=== PATIENT | female | born 1935 | race African-American/Black ===

== ENCOUNTER 2016-12-15 07:30 | Day surgery (SDC) | payer OTHER, BC ==
[2016-12-14 15:00] VITALS: BMI 33.2
[2016-12-15] MEDS ORDERED: ROPIVACAINE HCL 0.5% 30ML VIAL ONE (08:42)
[2016-12-15] MEDS ORDERED: MIDAZOLAM HCL 2 MG/2 ML SINGLE DOSE VIAL ONE ×2 (08:43)
[2016-12-15] MEDS ORDERED: ROCURONIUM BROMIDE 50 MG/5 ML VIAL ONE (09:54)
--- NOTE | 2016-12-15 09:58 | HP ---
[facility]ellite [facility] - Chief Complaint Chief Complaint: right shoulder pain - Past Medical History Allergies/Adverse Reactions: Allergies Allergy/AdvReac Type Severity Reaction Status Date / Time acetaminophen [From Percocet] Allergy "DIZZY,CRAZ Verified 12/14/16 15:02 Y" codeine Allergy Vomiting Verified 12/14/16 15:02 oxycodone HCl [From Percocet] Allergy "DIZZY,CRAZ Verified 12/14/16 15:02 Y" - Current Medications Current Medications: Home Medications Medication Instructions Recorded Amlodipine Besylate 5 mg PO DAILY 12/14/16 Aspirin [Aspirin EC] 81 mg PO DAILY 12/14/16 Losartan Potassium 50 mg PO DAILY 12/14/16 Multivitamin [One Daily] 1 each PO DAILY 12/14/16 Tramadol HCl 50 mg PO Q6H #40 tablet MDD 4 12/15/16 Satellite Physical Exam - Physical Examination Vital Signs: Vital Signs Period Temp Pulse Resp BP Sys/Pedraza Pulse Ox Last 24 Hr 97.3 F-97.3 F 80-80 20-20 180-180/70-70 100 General Appearance: Well Nourished, Well Developed, Alert & Oriented x3 ENT: Clear Lung: Normal air movement Heart: Regular rate & rhythm Extremities: Other (right shoulder- + ttp, decr rom, + empty can, + neer, + arevalo, nvi MRI + rct) Neurological: Intact, Alert, Oriented Satellite Impression/Plan - Impression/Plan Impression: right shoulder RCT Operative Procedure: right shoulder arthroscopy with RCR, SAD Date to be Performed: 12/15/16
[2016-12-15] MEDS ORDERED: ceFAZolin SODIUM 1 GM VIAL IVPB ONE (11:05)
--- NOTE | 2016-12-15 11:08 | EKG ---
Test Reason : Blood Pressure : / mmHG Vent. Rate : 065 BPM Atrial Rate : 065 BPM P-R Int : 146 ms QRS Dur : 082 ms QT Int : 422 ms P-R-T Axes : 067 021 042 degrees QTc Int : 438 ms SINUS RHYTHM WITH SINUS ARRHYTHMIA WITH OCCASIONAL PREMATURE VENTRICULAR COMPLEXES OTHERWISE NORMAL ECG NO PREVIOUS ECGS AVAILABLE Confirmed by ABEL DAVENPORT MD ([id number]) on 12/15/2016 11:08:27 AM Referred By: SUE FRANCO Confirmed By:ABEL DAVENPORT MD
[2016-12-15] MEDS ORDERED: NEOSTIGMINE METHYLSULFATE 0.5 MG/ML - 10 ML MDV ONE (11:42)
--- NOTE | 2016-12-15 11:54 | OP ---
Operative Note - Note: Operative Date: 12/15/16 Pre-Operative Diagnosis: right shoulder impingement syndrome, subacute full thickness RTC tear Operation: right shoulder arthroscopy, decompression, debridement RTC Post-Operative Diagnosis: Same as Pre-op Surgeon: James Yi Assembler Truck Trailer: Ok López Anesthesiologist/DESTINATION COORDINATOR: Melchor Osullivan Anesthesia: General, Local Specimens Removed: shavings Estimated Blood Loss (mls): 50 Drains, Volume Out (mls): 0 Blood Volume Replaced (mls): 0 Fluid Volume Replaced (mls): 500 Operative Report Dictated: Yes
--- NOTE | 2016-12-15 11:54 | OP ---
Operative Note - Note: Operative Date: 12/15/16 ([facility]) Pre-Operative Diagnosis: right shoulder RCT Operation: right shoulder arthroscopy with SAD Post-Operative Diagnosis: Same as Pre-op Surgeon: James Yi Lamp Inspector: Ok López Anesthesiologist/TEACHER PRIVATE: Meclhor Osullivan Anesthesia: General, Local Specimens Removed: shavings Estimated Blood Loss (mls): 5 Operative Report Dictated: Yes
[2016-12-15] MEDS ORDERED: ONDANSETRON 4 MG/2 ML VIAL IVPUSH PRN (12:57)
[2016-12-15] MEDS ORDERED: LACTATED RINGERS SOLUTION 1,000 ML IV SCH (13:00)
[2016-12-15 15:03] VITALS: BP 140/57; PULSE 56; TEMP 98.8
--- NOTE | 2016-12-16 09:12 | OP ---
DATE OF OPERATION: 12/15/2016 PREOPERATIVE DIAGNOSES: Right shoulder subacromial impingement and subacute rotator cuff tear. POSTOPERATIVE DIAGNOSES: Right shoulder subacromial impingement and subacute rotator cuff tear. PROCEDURE: Right shoulder arthroscopy and subacromial decompression. SURGEON: Sue Franco MD BUTTON MACHINE OPERATOR: DHRUV Zhao ANESTHESIOLOGIST: ROMELIA Osullivan ANESTHESIA: Right interscalene block, LMA anesthesia. DRAINS: None. COMPLICATIONS: None. BLOOD LOSS: Minimal. BLOOD GIVEN: None. FLUID REPLACEMENT: 500 mL INDICATION FOR PROCEDURE: This patient is an 81-year-old female with a preoperative diagnosis of a complete right rotator cuff tear 6 months ago and significant right shoulder subacromial impingement, bursitis, and pain. After understanding the potential risks, complications, alternatives, and benefits of surgery versus nonsurgical treatment and after extensive preoperative discussions where she understands her rotator cuff may not be repairable, the patient has elected to undergo this procedure. DESCRIPTION OF PROCEDURE: The patient was brought to the operating room, peripheral IV placed, IV sedation given. One gram of IV Ancef was given. LMA anesthesia was induced. She was placed into beach chair position with ample padding throughout. The right upper extremity was prepped and draped in sterile fashion. First, I did a manipulation under anesthesia. There was no tightness. Next, the bony landmarks were marked out, and I established a posterior portal and did diagnostic arthroscopy. Patient was seen to have a complete rotator cuff tear. I could easily see the undersurface of the acromion from the posterior portal. There was no rotator cuff that was visualized. There was a lot of synovitis, debris floating around, frayed labrum, and therefore, an anterior portal was established and debridement was done in the joint, including a synovectomy, just cleaning it up. Next, our attention was turned to the subacromial space. A lateral portal was established under direct visualization using a spinal needle. The patient had a [id number]-[id number] size subacromial bony spur. A 5.5-mm oval bur and a straight shaver were used to do a bony subacromial decompression and debridement/bursectomy. The debridement was done to the level of the AC joint. There was no large subclavicular spur. Therefore, that was unnecessary. Once this was done, it was freshened up with the bur in reverse and the shaver. I put the arm through a full range of motion. There was no impingement of the humeral head on the undersurface of the acromion. I used a grasper to try to mobilize and grab and pull any rotator cuff material down to the humeral head. There was none. What was there was just bursitis which tore as soon as I grabbed it. After extensive attempts to find the rotator cuff, I opted to not do a rotator cuff repair as there was nothing to repair. The area was copiously irrigated and washed out. All instrumentation, debris, and excess saline were removed. The arthroscopy portals were closed with 3-0 nylon sutures. The area was then washed and dried, covered with Aquacel. Patient was placed into a sling. Total operative time was about 40 minutes. There were no complications during the case. The patient tolerated the procedure quite well. SUE FRANCO M.D. [id number]
--- NOTE | 2016-12-16 14:13 | PATH ---
Surgical Pathology Report Patient Name: SO OCHOA [facility]. Rec. #: [id number] /Age/Gender: 1935 (Age: 81) / F Account: [id number] Location: [facility] SURGICAL Taken: 12/15/2016 Received: 12/15/2016 Reported: 12/16/2016 Physicians: James Yi M.D. Specimen(s) Received RIGHT SHOULDER SHAVINGS Clinical History Right shoulder impingement syndrome Final Diagnosis SOFT TISSUE, RIGHT SHOULDER, ARTHROSCOPIC SHAVINGS: SYNOVIUM AND FIBROCARTILAGE WITH MYXOHYALINE DEGENERATION. FRAGMENTS OF UNREMARKABLE BONE AND SKELETAL MUSCLE. Electronically Signed Daniel Faith M.D. Gross Description Received in formalin, labeled "right shoulder shavings" is a 4.1 x 3.6 x 0.3 cm aggregate of pritchard-yellow soft tissue fragments. A admissions representative portion is submitted in one cassette. 12/15/201612/15/2016
== END 2016-12-15 15:05 | disposition home or self-care (01) ==
LOC: JASU-SURG 07:30
PROVIDERS: ATTEND Orthopaedic Surgery
PROC: 0RBJ4ZZ Excision of Right Shoulder Joint, Percutaneous Endoscopic Approach (ICD-10-PCS; principal; 2016-12-15 09:30)
DX: M75.41 Impingement syndrome of right shoulder (principal); M75.121 Complete rotator cuff tear or rupture of right shoulder, not specified as traumatic
CPT/HCPCS: 88304-TC; 93005; 93010; 94760

== ENCOUNTER 2019-11-17 19:08 | Emergency (ER) | payer OTHER, BC ==
[2019-11-17 19:49] VITALS: BP 161/68; PULSE 80; TEMP 98.1; BMI 32.3
[2019-11-17] MEDS ORDERED: DIPHTH,PERTUSS(ACELL),TET 0.5 ML DISP.SYRIN IM ONE ×2 (20:17→20:21)
--- NOTE | 2019-11-17 20:21 | PDOC ---
History of Present Illness - General Chief Complaint: Injury Stated Complaint: FALL/INJURY/R/KNEE/R/PINKIE Time Seen by Provider: 11/17/19 20:11 History Source: Patient Exam Limitations: No Limitations - History of Present Illness Initial Comments: 11/17/19 20:18 84-year-old female past medical history hypertension presenting to the ED after mechanical fall. Patient states there was a broken piece of sidewalk she tripped falling directly on her right knee and her right hand without any head trauma or loss of consciousness. Patient is not on any anticoagulation. Patient currently endorses pinky pain as well as right knee pain. Patient denies any neck pain abdominal pain dizziness headache or any other symptoms suggesting internal trauma. Pt otherwise denies: fevers, chills, syncope, lightheadedness, dizziness, headaches, chest pain, shortness of breath, palpitations, back pain, vomiting, diarrhea, constipation. Past History - Medical History Allergies/Adverse Reactions: Allergies Allergy/AdvReac Type Severity Reaction Status Date / Time acetaminophen [From Percocet] Allergy "DIZZYBEEZ Verified 12/14/16 15:02 Y" codeine Allergy Vomiting Verified 12/14/16 15:02 oxycodone HCl [From Percocet] Allergy "DIZZY,CRAZ Verified 12/14/16 15:02 Y" Home Medications: Ambulatory Orders Amlodipine Besylate 5 mg PO DAILY 12/14/16 Aspirin [Aspirin EC] 81 mg PO DAILY 12/14/16 Losartan Potassium 50 mg PO DAILY 12/14/16 Multivitamin [One Daily] 1 each PO DAILY 12/14/16 Tramadol HCl 50 mg PO Q6H #40 tablet MDD 4 12/15/16 HTN: Yes - Surgical History Abdominal Surgery: Yes Appendectomy: Yes - Psycho-Social/Smoking History Smoking History: Never smoked Have you smoked in the past 12 months: No - Substance Abuse Hx (Audit-C & DAST Scrn) How often the patient has a drink containing alcohol: Never Score: In Men: 4 or > Positive; In Women: 3 or > Positive: 0 Screen Result (Pos requires Nsg. Audit-10AR): Negative *Physical Exam - Vital Signs Last Vital Signs Temp Pulse Resp BP Pulse Ox 98.1 F 80 20 161/68 100 11/17/19 19:40 11/17/19 19:40 11/17/19 19:40 11/17/19 19:40 11/17/19 19:40 - Physical Exam 11/17/19 20:19 Gen: AAOx 3, no acute distress, comfortable, no signs of respiratory distress HENT: atraumatic, normocephalic with no laceration or contusion. Nasal mucosa without erythema. Oropharynx without erythema or exudates. Mucous membranes moist. EYES: PERRL, EOM intact, conjunctiva pink NECK: supple; trachea midline; no JVD, no lymphadenopathy, or thyromegaly CV: RRR no murmurs, gallops, or rubs. CHEST: CTA b/l no wheezing, rales or rhonchi ABD: +BS/ND. no TTP; soft, no rebound, no guarding EXTREMITY: no cyanosis or erythema. 2+ dorsalis pedis, posterior tibial, and radial pulse. No pedal edema; no calf swelling or tenderness SKIN: no rash, warm and dry, no diaphoresis HEME: no purpura or ecchymosis NEURO: normal speech, CN II-XII intact, sensation intact, normal gait, no cerebellar deficits MS: 5/5 strength in all extremities, FROM intact in all extremities except R hand and R knee R knee: swelling to the medial aspect of the knee with superficial abrasion over the patella, PROM SILT R hand: obvious deformity to 5th digit with swelling and ttp dec ROM 2/2 pain <2 sec cap refill. 2+ radial pulse SILT ED Treatment Course - RADIOLOGY Radiology Studies Ordered: Category Date Time Status HAND- RIGHT [RAD] Stat Radiology 11/17/19 20:17 Ordered KNEE 4 POS-RIGHT [RAD] Stat Radiology 11/17/19 20:16 Ordered Medical Decision Making - Medical Decision Making 11/17/19 20:20 84-year-old female presenting after fall Vital signs stable Will update tetanus Will clean superficial abrasion and dress Will obtain x-rays of knee and hand Will reassess based on results XR knee shows no acute pathology XR hand shows proximal 5th digit fracture Patients knee cleaned and wrapped with carissa Pt placed in finger splint PMS intact before and after splinting Pt appears well and is safe and stable for discharge with close follow up with hand surgery and or orthopedics Referral attached Return precautions given including signs and symptoms requiring immediate return to the emergency room Supportive care instructions explained and given to pt. Reasons to return emergently to ER explained and given. Importance of follow up with PMD and other specialists as indicated stressed to pt. Pt verbalized understanding of ins tructions. Pt to follow up with PMD in 2 days. Discharge - Discharge Information Problems reviewed: Yes Clinical Impression/Diagnosis: Finger fracture, left Qualifiers: Encounter type: initial encounter Finger: little finger Fracture type: closed Phalanx: proximal Fracture alignment: displaced Qualified Code(s): S62.617A - Displaced fracture of proximal phalanx of left little finger, initial encounter for closed fracture Condition: Stable Disposition: HOME - Follow up/Referral Referrals: Eyad Lomeli [Primary Care Provider] - Clayton Landaverde MD [Staff Physician] - Ellis Castanon MD [Staff Physician] - James Yi MD [Staff Physician] - - Patient Discharge Instructions Patient Printed Discharge Instructions: DI for Finger Fracture Additional Instructions: YOU MUST FOLLOW UP WITH A HAND SURGEON OR ORTHOPEDIST - Post Discharge Activity
== END 2019-11-17 21:29 | disposition home or self-care (01) ==
LOC: JER 19:08
PROC: 3E0234Z Introduction of Serum, Toxoid and Vaccine into Muscle, Percutaneous Approach (ICD-10-PCS; principal; 2019-11-17)
DX: S62.617A Displaced fracture of proximal phalanx of left little finger, initial encounter for closed fracture (principal)
CPT/HCPCS: 73130-TC-RT-FY; 73564-TC-RT-FY; 90715; 99284-25

== ENCOUNTER 2023-06-26 12:09 | Emergency (ER) | payer OTHER, BC ==
[2023-06-26 12:20] VITALS: RESP 18; BMI 30.8
[2023-06-26 13:27] LABS: BASO % 0.9 % (0-2.0); EOS % 0.7 % (0-4.5); HEMATOCRIT 28.6 % (32.4-45.2); HEMOGLOBIN 9.2 GM/dL (10.7-15.3); LYMPH % 14.6 % (8-40); MCH 23.9 pg (25.7-33.7); MCHC 32.3 g/dl (32.0-36.0); MEAN CELL VOLUME 73.9 fl (80-96); MEAN PLT VOLUME 7.1 fl (7.5-11.1); MONO % 14.7 % (3.8-10.2); NEUT % 69.1 % (42.8-82.8); PLATELET COUNT 130 10^3/uL (134-434); RBC 3.86 M/mm3 (3.60-5.2); RDW 16.8 % (11.6-15.6); WHITE BLOOD COUNT 10.3 K/mm3 (4.0-10.0)
[2023-06-26 13:37] LABS: INR 1.06 (0.83-1.09); PROTHROMBIN TIME (PATIENT) 12.3 SEC (9.7-13.0)
[2023-06-26 13:40] LABS: ACTIVATED PTT 32.7 SECONDS (25.2-36.5)
[2023-06-26 13:46] LABS: POTASSIUM 4.7 mmol/L (3.5-5.1)
[2023-06-26 13:48] LABS: CALCIUM 9.1 mg/dL (8.5-10.1)
[2023-06-26 13:49] LABS: ALBUMIN 3.3 g/dl (3.4-5.0); BLOOD UREA NITROGEN 50.7 mg/dL (7-18)
[2023-06-26 13:54] LABS: BILIRUBIN,TOTAL 0.3 mg/dL (0.2-1)
[2023-06-26 13:56] LABS: URINE APPEARANCE TURBID; URINE COLOR RED
[2023-06-26 13:57] LABS: URINE BILIRUBIN 1+ (NEGATIVE); URINE GLUCOSE (UA) NEGATIVE (NEGATIVE)
[2023-06-26 13:58] LABS: URINE PROTEIN 3+ (NEGATIVE); URINE UROBILINOGEN 0.2 mg/dL (0.2-1.0)
[2023-06-26 13:59] LABS: HYALINE CASTS 12.03 /uL (0-3.1); URINE BACTERIA 1.8 /uL (0-1359); URINE RBC 2708.3 /uL (0-23.9); URINE WBC 2.7 /uL (0-25.8)
[2023-06-26] MEDS ORDERED: ACETAMINOPHEN INJECTION 100 ML IVPB ONE (14:19)
[2023-06-26] MEDS: SODIUM CHLORIDE 0.9% 500 ML INFUS.BAG IV ONE (14:28)
[2023-06-26] MEDS: ACETAMINOPHEN 1000 MG/100 ML BAG IVPB ONE (14:28)
[2023-06-26 17:35] VITALS: BP 140/64; PULSE 105; TEMP 98.1
== END 2023-06-26 19:27 | disposition home or self-care (01) ==
LOC: JER 12:09
PROC: 3E030NZ Introduction of Analgesics, Hypnotics, Sedatives into Peripheral Vein, Open Approach (ICD-10-PCS; principal; 2023-06-26)
DX: R10.811 Right upper quadrant abdominal tenderness (principal); R10.813 Right lower quadrant abdominal tenderness; R30.0 Dysuria; R35.0 Frequency of micturition; R31.9 Hematuria, unspecified; R33.9 Retention of urine, unspecified; R00.0 Tachycardia, unspecified
CPT/HCPCS: 36415; 74176-TC; 80053; 81003; 83605; 85025; 85610; 85730; 86850; 86900; 86901; 87086; 93005; 93010; 96374; 99285-25; J0131